=== PATIENT | female | born 1970 | race Caucasian/White ===

== ENCOUNTER 2025-04-26 08:03 | Outpatient (CLI) | payer OTHER | END 2025-04-26 08:04 | disposition home or self-care (01) | LOC: CSHMAMMO 08:03 | PROVIDERS: ATTEND Obstetrics & Gynecology | DX: Z12.31 Encounter for screening mammogram for malignant neoplasm of breast (principal); N64.89 Other specified disorders of breast; Z98.2 Presence of cerebrospinal fluid drainage device | CPT/HCPCS: 77063; 77067 ==

== ENCOUNTER 2025-05-09 08:17 | Outpatient (CLI) | payer OTHER | END 2025-05-09 08:18 | disposition home or self-care (01) | LOC: CSHMAMMO 08:17 | PROVIDERS: ATTEND Obstetrics & Gynecology | DX: N64.89 Other specified disorders of breast (principal) | CPT/HCPCS: G0279 ==